=== PATIENT | female | born 2000 | race African-American/Black ===

== ENCOUNTER 2025-06-04 18:19 | Emergency (ER) | payer SELFPAY ==
[~2025-06-04] VITALS: Ht 182.9 cm; Wt 127.0 kg
[2025-06-04 18:26] VITALS: PULSE 105; RESP 16; TEMP 36.7; O2SAT 100
[2025-06-04 18:32] VITALS: BP 129/87; O2SAT 99
== END 2025-06-04 20:54 | disposition left against medical advice (07) ==
LOC: ER 18:19
DX: K08.89 Other specified disorders of teeth and supporting structures (principal); Z53.21 Procedure and treatment not carried out due to patient leaving prior to being seen by health care provider
CPT/HCPCS: 99281